=== PATIENT | male | born 1960 | race Caucasian/White ===

== ENCOUNTER → 2024-02-11 08:09 | Outpatient (CLI) | payer OTHER, SELFPAY ==
--- NOTE | 2024-02-11 08:36 | EKG_ITS ---
[address] [id number] [address] [place] [address] Test Date: 2024-02-11 Pat Name: Joshua Castillo Department: Room: Gender: Male Or[employer]al [employer] Sticker: : [id number] Requested By: Order Number: [id number] Reading MD: Agapito Felix MD Measurements Intervals [place] Rate: 64 P: 46 [place]: 164 QRS: 20 QRSD: 84 T: 25 QT: 402 QTc: 414 Interpretive Statements Normal sinus rhythm Electronically Signed On 02-11-2024 13:37:08 PDT by Agapito Felix MD
[2024-02-11 08:59] LABS: Add Manual Diff / Slide Review NO; Basophils Absolute Auto 0 /uL (0-100); Basophils Percent Auto 0.6 % (0-2); Eosinophils Absolute Auto 100 /uL (0-450); Eosinophils Percent Auto 3.4 % (2-4); Hemoglobin 13.6 g/dL (13.5-17.5); Lymphocytes Absolute Auto 1400 /uL (1100-4500); Lymphocytes Percent Auto 33.5 % (25-40); Mean Corpuscular Hemoglobin 31.5 PG (26-34); Mean Corpuscular Volume 92.4 fL (80-100); Monocytes Absolute Auto 500 /uL (0-900); Monocytes Percent Auto 11.6 % (3-14); Neutrophils Absolute Auto 2100 /uL (1500-7000); Neutrophils Percent Auto 50.9 % (50-75); Platelet Count 265 X10^3/uL (150-400); Red Blood Cell Count 4.32 X10^6/uL (4.5-5.9); White Blood Cell Count 4.2 X10^3/uL (4.5-11.0)
[2024-02-11 09:12] LABS: BUN Creatinine Ratio 29.8 (6-22); Blood Urea Nitrogen 25 mg/dL (9-20); Calcium 9.1 mg/dL (8.4-10.2); Carbon Dioxide 25 mmol/L (22-32); Chloride 107 mmol/L (98-107); Estimated Glomerular Filt Rate > 60 mL/min (>60); Glucose 130 mg/dL (80-110); HEMOLYSIS < 15 (0-50); Sodium 139 mmol/L (137-145)
== END ==
PROVIDERS: PCP Family Medicine; Referring Provider Orthopaedic Surgery; Visit Provider Orthopaedic Surgery
DX: Z01.818 Encounter for other preprocedural examination (principal); Z01.812 Encounter for preprocedural laboratory examination
CPT/HCPCS: 36415; 80048; 85025; 93005; 93010

== ENCOUNTER 2024-04-07 08:25 | Day surgery (SDC) | payer OTHER, SELFPAY ==
[2024-04-01 10:44] VITALS: BMI 34.5
[2024-04-07] VITALS (11 sets, daily range): BP systolic 105–156; BP diastolic 58–83; PULSE 59–83; RESP 12–21; TEMP 36.4–37.2; O2SAT 94–99; BMI 34.7
--- NOTE | 2024-04-07 | DI.RAD.S_ITS ---
PROCEDURE: [id number] W PEL IF PERFORMED INDICATIONS: LEFT ANTERIOR HIP TECHNIQUE: 7 fluoroscopic spot films COMPARISON: None. FINDINGS: Low resolution intraoperative fluoroscopic spot films show left total hip arthroplasty in progress. IMPRESSION: Fluoroscopic guidance Approved by: Josafat Gonzalez M.D. on 04/07/2024 at 14:15
--- NOTE | 2024-04-07 | DI.RAD.S_ITS ---
PROCEDURE: XR HIP W PEL IF DONE LT 2V INDICATIONS: LEFT ANTERIOR POST OP TECHNIQUE: AP pelvis and lateral view of the hip acquired. COMPARISON: [facility], CR, [id number] W PEL IF PERFORMED, 04/07/2024, 11:51. FINDINGS: Bones: Patient is status post left hip arthroplasty, with hardware components in expected positions. The hip joint appears congruent. The visualized bony structures appear intact. Soft tissues: Overlying postoperative changes are noted. No suspicious soft tissue densities. IMPRESSION: Expected post-operative appearance of a hip arthroplasty. Approved by: Josafat Gonzalez M.D. on 04/07/2024 at 14:18
[2024-04-07] MEDS: LACTATED RINGERS 1,000 ML 42 ML IV ×2 (09:14→11:57)
[2024-04-07] MEDS: ACETAMINOPHEN 325 MG TABLET 975 MG PO (09:14)
[2024-04-07] MEDS: VANCOMYCIN 1,000 MG/200 ML PIGGYBACK 200 MG IV (10:09)
[2024-04-07] MEDS: CEFAZOLIN VIAL 1 GM in SODIUM CHLORIDE 0.9% 100 ML IV (10:22)
[2024-04-07] MEDS: CEFAZOLIN 2 GM/100 ML PREMIX 100 ML IV (10:22)
--- NOTE | 2024-04-07 10:25 | PM.PREOP ---
Pre-operative Note Interval Note History & Physical reviewed/Exam performed by Physician: Yes Changes to H&P: No
[2024-04-07] MEDS: TRANEXAMIC ACID 1,000 MG in SODIUM CHLORIDE 0.9% 100 ML 200 MG IV ×2 (10:30→13:01)
--- NOTE | 2024-04-07 11:28 | SUR.OPER ---
Patient supine on padded [place] table, one arm on padded arm board at <90, other arm padded and secured with tape across patient's chest, both legs secured in padded traction boots and positioned per surgeon, padded post at patient's groin, pressure points checked and padded.
[2024-04-07] MEDS: BUPIVACAINE LIPOSOME 266 MG/20 ML VIAL INJ (11:35)
[2024-04-07] MEDS: BUPIVACAINE 0.25% (PF) 60 ML, EPINEPHrine 0.3 MG INJ (11:35)
--- NOTE | 2024-04-07 13:53 | P.OP_ITS ---
Operative Date/Time/Diagnoses Date of procedure: 04/07/24 Time of procedure: 11:20 Pre-op diagnosis: left hip OA Post-op diagnosis: same Procedure & Clinicians Procedure: Left total hip arthroplasty anterior approach Same procedure as scheduled: Yes Indications: The patient has had progressively worsening left hip pain with radiographic culp ges consistent with arthritis. Non-operative management has failed and the patient has requested total hip replacement. The risks, benefits and alternatives to surgery were discussed with the patient prior to proceeding. Risks discussed included, but were not limited to, failure to relieve pain, leg length discrepancy, dislocation, stiffness, infection, nerve damage, deep venous thrombosis, pulmonary embolism, stroke, coma, heart attack, permanent paralysis and , as well as the potential need for eventual revision of the prosthetic. Surgeon: Shahida Bhat Revolving Field Assembler: Jase Rasmussen Anesthesia Type: General and Spinal Operative Notes Findings: Severe left hip OA, adequate stability, adequate bone Closure Type: primary Specimen(s): none sent Prosthetic devices, grafts, tissues, transplants, or devices: Bhat and Nephew 60 mm R3 cup, neutral poly liner, one 6.5 mm screw, polar stem lateralized size 4, 40 mm Oxinium head, +4 Estimated Blood Loss (mL): 250 Blood products transfused: none Procedure in detail: The patient was brought to the operating room. Patient was carefully positioned in the supine position. Time-out was performed and antibiotics were given. Anesthesia was induced. He was positioned in the on the table in order to allow hyperextension of the hip. The left lower extremity was prepped and draped in a standard sterile fashion. An anterior left hip incision was made 1 fingerbreadth lateral to the anterior superior iliac spine and extended distally towards the greater trochanter. Dissection was carried out through skin and subcutaneous tissues. Superficial hemostasis was achieved. The fascia over the tensor fascia sukhwinder was defined and incised with a knife. Two Allis clamps were used to grasp the fascia. Tensor fascia sukhwinder was retracted laterally. A gelpi retractor was placed. Dissection was carried out down along the neck. The circumflex vessels were carefully identified and cauterized with the Aqua Mantis. A PA was used during the procedure and was essential for intraoperative retraction and safe implantation of the components. There was good visualization of the femoral neck. A Cobra was placed superior to the neck and the gluteus fibers were carefully stripped from that superior aspect of the capsule. A 2nd retractor was placed along the inferior aspect of the neck. The rectus insertion along the capsule was partially released. A 3rd retractor that was then gently placed over the rim of the acetabulum under the rectus. Capsule was carefully incised and released from the intertrochanteric line circumferentially superior to the mid sagittal line and inferiorly to the mid sagittal line until the lesser trochanter was palpable. A tag stitch was placed both in the superior and inferior limb of the capsular insertion. Along the acetabulum capsule was also released up to the mid sagittal 12:00 position. A portion of the labrum was resected. A saw was used to perform an osteotomy at the level of the intertrochanteric line and the junction of the superior femoral neck leaving approximately 1 finger breath of residual inferior neck above the lesser trochanter. A 2nd cut was made along the femoral neck at the base of the head and a napkin ring of neck was removed. Corkscrew was placed in the femoral head and the head was removed without difficulty. Retractors were then repositioned around the acetabulum. Residual labrum was resected and additional osteophytes were removed. A reamer that was 4 mm below the templated size was placed by hand in the acetabulum and it was reamed to centralize the acetabulum. It was then reamed up to 2 under the templated size and fluoroscopy was brought in to confirm the position of the reaming and depth of reaming. I reamed 1 under the anticipated size. A trial cup was placed and noted that it was appropriately sized and fluoroscopy confirmed position and depth. The component was open and inserted without difficulty fluoroscopic imaging was used to confirm that the cup had been adequately seated and was well positioned. It was further stabilized with a single screw. Neutral poly liner was placed. The cup was tested and noted to be stable. Attention was then directed to the femur. The femur was gently hyperextended additional capsular release was performed as needed in order to allow adequate visualization of the proximal femur with elevation of the femur. Patient was placed in a hyperextended slightly adducted position with maximum external rotation. Box osteotome was used to check for any residual neck as well as sclerotic bone along the trochanter. [place] pepper was placed in the femur. Additional broaching was performed. Canal finder was used to determine the alignment of the canal and position. Size 1 broach was placed. The canal was then appropriately broached up to the templated size as long as there was adeq uate stability of the broach and serial advancement of the broach without excessive impingement. Specific attention was directed at avoiding varus attempting to direct the distal aspect of the broach more anteriorly and avoiding excessive anteversion. Trial reduction showed acceptable range of motion, good stability, no posterior impingement, yazidism of leg length and appropriate lateral shuck. I also hyperflexed the hip and checked that there was no impingement anteriorly and there was good stability with flexion, adduction and internal rotation. Marcaine and Exparel were injected. The stem was placed without difficulty. Repeat trial reduction and x-ray showed acceptable overall position, length, and no evidence of the femoral fracture. I did a trial both with a +0 and a +4. X- rays suggested better leg length with a +4. Final head was placed. Wound was meticulously irrigated with normal saline. The hip was reduced and additional Exparel and Marcaine were injected. The capsule was closed with interrupted nonabsorbable sutures. The fascia of the tensor was closed with interrupted and running Vicryl. No drain was placed. Any tensor fascia sukhwinder muscle that appeared to be contused or injured which was a minimal amount was carefully resected. Capsule around the tensor was injected with Exparel and Marcaine. The skin was closed with barbed stitches for the subcutaneous tissue and skin. We also used surgical glue. The wound was dressed sterilely. Brief Betadine soak was also used and was meticulously irrigated with normal saline. Patient was transferred to recovery room in satisfactory condition. Complications: none Post-operative Condition: stable Disposition: Acute Care Plan for aftercare: The patient will be maintained on a standard total hip replacement protocol with weight bearing as tolerated and anterior hip precautions. The patient will receive Aspirin and sequential compression devices for DVT prophylaxis. The patient will be discharged home when safe for the home environment.
[2024-04-07] MEDS: OXYCODONE IR 5 MG TABLET PO (15:36)
[2024-04-07] MEDS: ACETAMINOPHEN 325 MG TABLET 650 MG PO ×2 (15:37→20:07)
--- NOTE | 2024-04-07 17:36 | PC.NURSE ---
Dressing to l.hip with ramon ames. Patient given oxycodone and tylenol. He is resting comfortably.
[2024-04-07] MEDS: CEFAZOLIN VIAL 3 GM in SODIUM CHLORIDE 0.9% 100 ML IV (18:30)
[2024-04-07] MEDS: LACTATED RINGERS 1,000 ML 100 ML IV (18:32)
[2024-04-07] MEDS: DOCUSATE 100 MG CAPSULE PO (20:07)
[2024-04-07] MEDS: ASPIRIN EC 81 MG TABLET PO (20:07)
--- NOTE | 2024-04-07 22:00 | PC.NURSE ---
Addendum entered by Skyla Galindo R.N. 04/08/24 06:39: Pt OOB and ambulated to bathroom x3 during shift. Original Note: NOC: Pt OOB and ambulated 1PA/FWW/GB to bathroom, voided 600mL clear yellow urine, ambulated back to bed. Pt tolerated well, steady gait. Bed low and locked, call light within reach, care continues.
[2024-04-08] MEDS: IBUPROFEN 400 MG TABLET PO ×2 (00:07→09:22)
[2024-04-08] MEDS: OXYCODONE IR 5 MG TABLET PO (01:05)
[2024-04-08 02:00] VITALS: BP 90/34; PULSE 79; RESP 16; TEMP 36.6; O2SAT 99
[2024-04-08] MEDS: CEFAZOLIN VIAL 3 GM in SODIUM CHLORIDE 0.9% 100 ML IV (02:35)
[2024-04-08 07:14] LABS: Hematocrit 32.9 % (41-53); Hemoglobin 11.4 g/dL (13.5-17.5)
[2024-04-08 08:00] VITALS: BP 104/68; PULSE 62; RESP 15; TEMP 36.6; O2SAT 96
--- NOTE | 2024-04-08 08:45 | PM.DS.1 ---
History of Present Illness History of Present Illness Date Patient Seen: 04/08/24 Time Patient Seen: 07:45 Chief complaint: Left Total Hip Arthroplasty/Anterior Approach 04/07 Narrative: The patient has had progressively worsening left hip pain with radiographic changes consistent with arthritis. Non-operative management has failed and the patient has requested total hip replacement. The risks, benefits and alternatives to surgery were discussed with the patient prior to proceeding. Risks discussed included, but were not limited to, failure to relieve pain, leg length discrepancy, dislocation, stiffness, infection, nerve damage, deep venous thrombosis, pulmonary embolism, stroke, coma, heart attack, permanent paralysis and , as well as the potential need for eventual revision of the prosthetic. Discharge Providers Provider Discharge Date: 04/08/24 Primary care physician: Osmani Ramos MD Consults: 04/07/24 10:20 Consult to Anesthesiology Routine Comment: Consulting Provider: Anesthesiologist Reason for consultation: Regional block for post operative pain control 04/07/24 15:13 Consult to Discharge Planning Routine Comment: Consult to Occupational Therapy Evaluate & Treat Comment: Physician Instructions: Evaluate and treat Consult to Physical Therapy Evaluate & Treat Comment: Physician Instructions: post op RYAN protocol Discharge provider: Mert Matos PA-C Summary Hospital Course Discharge Diagnosis: left hip OA Hospital Course: Left total hip arthroplasty anterior approach Same procedure as scheduled: Yes Surgeon: Shahida Bhat Epic Cadence Analyst: Jase Rasmussen Anesthesia Type: General and Spinal Operative Notes Findings: Severe left hip OA, adequate stability, adequate bone Closure Type: primary Specimen(s): none sent Prosthetic devices, grafts, tissues, transplants, or devices: Bhat and Nephew 60 mm R3 cup, neutral poly liner, one 6.5 mm screw, polar stem lateralized size 4, 40 mm Oxinium head, +4 Estimated Blood Loss (mL): 250 Blood products transfused: none Status at Discharge Cognitive/behavioral status at discharge: oriented Functional status at discharge: uses cane/walker Overall status at discharge: patient is back to baseline Time Spent with Patient Time spent: Less than 30 minutes Exam Vital Signs (past 8 hours): - 04/08/24 02:00 Temperature 97.8 F Pulse Rate 79 Respiratory Rate 16 Blood Pressure 90/34 L Pulse Oximetry 99 Oxygen Flow Rate 0 Oxygen Delivery Method Room Air Oxygen Flow Rate 0 Narrative Exam Narrative: Sitting comfortably in his chair. Pain is controlled with oral medications. He has been able to get up and ambulate with assistance. Denies any nausea vomiting chills. 5/5 strength in hip flexors, quadriceps, hamstrings, DF, PF, EHL bilaterally. Sensation to light touch intact throughout BLE. Calves soft, compressible, nontender. ?Dressing placed intraoperatively CDI. Resp Effort & Inspection: normal respiratory effort and able to speak in complete sentences Objective Labs 04/08/24 06:10 Labs: Laboratory Results - last 24 hr 04/08/24 06:10 Hgb 11.4 L Hct 32.9 L PFSH Medical History Osteoarthritis Prediabetes Obesity HTN (hypertension) Surgical History Hx of tonsillectomy Social History household members: spouse Smoking Status: Never smoker alcohol intake: current Discharge Assessment & Plan Assessment and Plan Assessment: Status post left RYAN Plan of Treatment: Plan discharge home pending PT approved. Hypotensive this morning. Providing 1000 cc to restore volume. Holding lisinopril this morning. Ambulate as tolerated with assistive devices. Patient has postoperative medications and has been instructed on use. Initiate outpatient physical therapy in 5-10 days. Aspirin 81 mg twice a day for 6 weeks for DVT prophylaxis. Follow up in clinic in 2 weeks for wound check. Discharge Plan Discharge Plan Patient Disposition: Home Provider Discharge Comment: DC pending PT approval Discharge orders & Medications Discharge Orders: Discharge (Order); Ordered 04/08/24 Ordered By: Mert Matos Prescriptions: Continued lisinopril-hydrochlorothiazide 20-12.5 mg tablet 0.5 tab PO DAILY ibuprofen 200 mg Capsule 200 - 400 mg PO BID PRN (Reason: Pain (Scale Score 4-6)) Changed aspirin 81 mg Capsule 81 mg PO BID Qty: 90 0RF Follow up/Referrals: Osmani Ramos MD [Primary Care Provider] - Diet/Activity/Treatments Diet: Diet as Tolerated Activity: Ambulate multiple times a day. Use a cane or walker as needed. Full weight on leg. Cold/Heat Therapy: Use ice multiple times a day. Skin/Wound/Dressing Care Skin care: Leave dressing on. Okay to shower Report to your healthcare provider any signs of infection, such as:: chills, fever, night sweats, unusual drainage and unusual redness Dressing: May shower. Leave dressing in place until follow up in office. No bathing or otherwise soaking incision. Call the office if the dressing becomes saturated inside. Visit Report/Discharge Packet Instructions: DI for Hip Replacement, DI for Prescription Opioid Use Stand Alone Forms: Surgery Discharge Discharge Data Primary Care Provider: Osmani aRmos Attending Provider: Shahida Bhat
[2024-04-08] MEDS: polyethylene glycoL 3350 17 GM POWD.PACK PO (09:21)
[2024-04-08] MEDS: ACETAMINOPHEN 325 MG TABLET 650 MG PO (09:22)
[2024-04-08] MEDS: DOCUSATE 100 MG CAPSULE PO (09:23)
[2024-04-08] MEDS: ASPIRIN EC 81 MG TABLET PO (09:23)
--- NOTE | 2024-04-08 09:45 | OT.IP.EVAL ---
Current Diagnoses Unilateral primary osteoarthritis, left hip (04/07/24) Surgery Performed Operation Date: 04/07/24 10:45 Actual Procedures p Total Hip Arthroplasty/Anterior Approach(Left) - Shahida Bhat MD Past Medical History (Last Reviewed 04/07/24 @ 09:32 by Camille Bauer, SHELLY) HTN (hypertension) Obesity Osteoarthritis Prediabetes Surgical History (Last Reviewed 04/07/24 @ 09:32 by Camille Bauer, SHELLY) Hx of tonsillectomy Occupational Therapy Inpatient Evaluation/Re-Eval M1 PT/OT-IP Prior Functional Status Start: 04/08/24 09:48 Freq: NEEDED Status: Active Protocol: Document 04/08/24 09:48 [facility] (Rec: 04/08/24 10:00 [facility] [id number]) Medical Review Prior Functional Status Communication Independent Mobility and Gait Limited with walking distance without a device and use of trekking poles to hike. Activities of Daily Living and IADL's Increased time and had pain. Social History Household Members spouse Living Arrangements House Number of Floors (Floors) Two Floors Number of Stairs To Enter/Railing? 2 steps to enter with post and to stay on the main level and sleep in the recliner initially. Home Environment Standard Height Toilet,Tub/ Shower Home Equipment Front Wheel Walker,Shower Seat without Backrest,Filtrose Crusher,Grab Bars In Shower Additional Social History Comment Pt's to be home to assist pt. M2 OT-IP Current Condition Start: 04/08/24 09:48 Freq: Status: Active Protocol: Document 04/08/24 09:48 [facility] (Rec: 04/08/24 10:00 [facility] [id number]) Occupational Therapy Current Condition Current Condition Evaluation Date 04/08/24 Treatment Diagnosis S/P L RYAN anterior Diagnosis Onset Date 04/07/24 Post Operative Precautions Anterior Hip Precautions No Hip Extension,No Hip External Rotation M3 OT- IP Subjective and Pain Start: 04/08/24 09:48 Freq: Status: Active Protocol: Document 04/08/24 09:48 [facility] (Rec: 04/08/24 10:00 [facility] [id number]) OT- Subjective Occupational Therapy Visit Type Type Initial Evaluation Visit Start Time 09:10 Visit Stop Time 09:45 Occupational Therapy Visit Comments Patient Comments Pt agreed to get up and get dressed, pt's present at the end of OT eval. Patient/Caregiver Goals TO go home. OT Pain Assessment Pain When Pain Assessed During Mobility Pain Present Pain Present Pain Reported Location Left Hip Intensity 4 Scale Used Numeric (0 - 10) M4 OT- IP ADL's Start: 04/08/24 09:48 Freq: Status: Active Protocol: Document 04/08/24 09:48 [facility] (Rec: 04/08/24 10:00 [facility] [id number]) OT [id number] General Evaluation Self-Feeding Ability Independent OT ADL-Grooming General Evaluation Grooming Ability Independent OT ADL-Oral Care General Eval Oral Care Ability Independent OT ADL-Dressing General Eval Upper Body Dressing Ability Independent Lower Body Dressing Ability Moderate Assistance Areas Needing Assistance Socks,Shoes Comments OT Dressing Comments Able to show pt use of LB dressing equipment. To dress the LLE first and take out last and to be mindful on the LLE positioning during needs. OT ADL-Toileting General Evaluation Toileting Ability Standby Assistance Comments OT Toileting Comments Showed pt toilet aid as pt has difficulty to reach behind him and suggested use of urinal at night. OT ADL-Bathing General Evaluation Bathing Ability Minimal Assistance Areas Needing Assistance Wash/Dry Back Comments OT Bathing Comments Pt able to sponge off while seated. Pt states will just sponge off until feeling stronger to get upstairs to the shower. M5 OT- IP IADL's Start: 04/08/24 09:48 Freq: Status: Active Protocol: Document 04/08/24 09:48 [facility] (Rec: 04/08/24 10:00 [facility] [id number]) OT-Instrumental Activities of Daily Living Home Safety Awareness Awareness of Need for Assistance at Home Good Awareness Ability to Problem Solve Emergency Able to Problem Solve Situations Medication Management Medication Management No Deficits Identified Money Management Money Management No Deficits Identified Meal Preparation Meal Preparation Caregiver Provides Assist Reclamation Engineer Reclamation Engineer Caregiver Provides Assist M6 OT- IP Functional Cognition Start: 04/08/24:48 Freq: Status: Active Protocol: Document 04/08/24 09:48 [facility] (Rec: 04/08/24 10:00 [facility] [id number]) Cognitive Factors Limiting Selfcare Function Cognitive Ability Level of Alertness Alert Patient Orientation Name,Age,Birthday,Month,Date, Year,Day of Week,Place, Situation Attention Span Ability Capable of Focused Attention, Capable of Sustained Attention Ability to Follow Commands Able to Follow Multi-Step Commands Cognitive Comments Cognitive Assessment Comments Intact OT- Vision and Hearing OT- Hearing Assessment OT- Hearing Assessment WFL OT- Vision Assessment Visual Acuity WFL Visual Attentiveness WFL Occular Pursuits WFL Vision Assessment Comments Glasses for driving M7 OT- IP Mobility and Balance Start: 04/08/24 09:48 Freq: Status: Active Protocol: Document 04/08/24 09:48 [facility] (Rec: 04/08/24 10:00 [facility] [id number]) OT- Bed Mobility Assessment Supine to Sit Supine to Sit Assist Minimal Assistance Sit to Supine Sit to Supine Assist Minimal Assistance OT-Transfer Assessment Sit to and From Stand Sit to and from Stand Minimal Assistance Transfers Transfer Ability Standby Assistance,Contact Guard Assistance Technique Transfer Destination Bed,Chair,Toilet Transfer Technique Stand Step Pivot Devices Transfer Assistive Devices Gait Belt,Front Wheeled Walker Comments Mobility Comments Assist to get his LLE into and out of the bed and educated to be sure his toes are pointing up to prevent from external rotation. Educated for car transfers and how to lyn/doff the gait belt. OT- Balance Assessment Sitting Balance and Reactions Static Sitting Balance Ability Normal Dynamic Sitting Balance Ability Good Standing Balance and Reactions Static Standing Balance Ability Good Dynamic Standing Balance Ability Fair M8 OT- IP Objective Assessments Start: 04/08/24 09:48 Freq: Status: Active Protocol: Document 04/08/24 09:48 [facility] (Rec: 04/08/24 10:00 [facility] [id number]) OT Gross Range of Motion Upper Extremity Range of Motion Assessment Within Functional Limits OT Strength Upper Extremity Strength Assessment Within Functional Limits M9 OT- IP Assessment and Plan Start: 04/08/24 09:48 Freq: Status: Active Protocol: Document 04/08/24 09:48 [facility] (Rec: 04/08/24 10:00 [facility] [id number]) OT Summary Assessment and Plan Potential Rehabilitation Potential Excellent Analytic Complexity at Evaluation Low Summary OT Impairments Pain,Strength,Balance, Functional Mobility,Dressing, Toileting,Bathing,Toilet Transfers,Shower Transfers Progress Towards Goals Progressing Toward Goals Goals Dressing Goal Independent,Filtrose Crusher Toileting Goal Independent Bathing Goal Standby Assistance Toilet Transfer Goal Independent Shower Transfer Goal Standby Assistance Days to Meet Goals 7 Frequency of Treatment Other frequency 5x/week Treatment Plan OT Treatment Plan ADL Training,Functional Mobility,Patient/Family Education,Discharge Planning Discharge Recommendations OT Discharge Recommendations Home with Assistance, Outpatient PT Home Equipment Needs toilet paper aid, can benefit from a sock aid Transportation Needs at Discharge Private Vehicle
--- NOTE | 2024-04-08 10:10 | PT.IIE ---
Current Diagnoses Unilateral primary osteoarthritis, left hip (04/07/24) Surgery Performed Operation Date: 04/07/24 10:45 Actual Procedures p Total Hip Arthroplasty/Anterior Approach(Left) - Shahida Bhat MD Surgical History (Last Reviewed 04/07/24 @ 09:32 by Camille Bauer, RN) Hx of tonsillectomy Medical History (Last Reviewed 04/07/24 @ 09:32 by Camille Bauer, SHELLY) HTN (hypertension) Obesity Osteoarthritis Prediabetes Physical Therapy Inpatient Evaluation/Re-Eval M1 PT/OT-IP Prior Functional Status Start: 04/08/24 09:48 Freq: NEEDED Status: Discharge Protocol: Document 04/08/24 09:48 [facility] (Rec: 04/08/24 10:00 [facility] [id number]) Medical Review Prior Functional Status Communication Independent Mobility and Gait Limited with walking distance without a device and use of trekking poles to hike. Activities of Daily Living and IADL's Increased time and had pain. Social History Household Members spouse Living Arrangements House Number of Floors (Floors) Two Floors Number of Stairs To Enter/Railing? 2 steps to enter with post and to stay on the main level and sleep in the recliner initially. Home Environment Standard Height Toilet,Tub/ Shower Home Equipment Front Wheel Walker,Shower Seat without Backrest,Control Room Technician,Grab Bars In Shower Additional Social History Comment Pt's to be home to assist pt. M1 PT/OT-IP Prior Functional Status Start: 04/08/24 13:12 Freq: NEEDED Status: Active Protocol: Document 04/08/24 10:10 AB (Rec: 04/08/24 13:28 AB [id number]) Medical Review Prior Functional Status Medical History Reviewed Yes Communication able to make needs known Mobility and Gait pt stated that he was independent with all mobilities and ambulation without AD Social History Household Members spouse Living Arrangements House Number of Floors (Floors) Two Floors Number of Stairs To Enter/Railing? pt will stay on main level of the house has 2 steps withotu rails to enter the house Home Environment Standard Height Toilet,Tub/ Shower Home Equipment Front Wheel Walker,Shower Seat without Backrest,Hand Held Shower,Control Room Technician,Grab Bars Near Toilet,Grab Bars In Shower Additional Social History Comment pt has hiking poles M2 PT-IP Current Condition Start: 04/08/24 13:12 Freq: NEEDED Status: Active Protocol: Document 04/08/24 10:10 AB (Rec: 04/08/24 13:28 AB [id number]) Physical Therapy Current Condition Current Condition Evaluation Date 04/08/24 Treatment Diagnosis s/p L RYAN anterior; difficulty in walking Onset Date 04/07/24 M3 PT-IP Subjective Start: 04/08/24 13:12 Freq: NEEDED Status: Active Protocol: Document 04/08/24 10:10 AB (Rec: 04/08/24 13:28 AB [id number]) Subjective Physical Therapy Visit Type Type Initial Evaluation Visit Start Time 10:10 Visit Stop Time 10:45 Number of COOK RAILROAD Visits 0 Physical Therapy Visit Comments Patient Comments agreeable to do PT Therapy Pain Assessment Pain When Pain Assessed At Rest Pain Present Pain Present Pain Reported Location Left Hip Intensity 1 Scale Used Numeric (0 - 10) Pain Management Techniques Apply Cold,Distraction, Modification of Treatment,Re- positioning,Timing of Activity with Medications M4 PT-IP Mobility and Gait Start: 04/08/24 13:12 Freq: NEEDED Status: Active Protocol: Document 04/08/24 10:10 AB (Rec: 04/08/24 13:28 AB [id number]) PT-Bed Mobility Assessment Supine to Sit Supine to Sit Minimal Assistance,1 Person Assistance Sit to Supine Sit to Supine Minimal Assistance,1 Person Assistance PT-Transfer Assessment Sit to and From Stand Sit to and from Stand Standby Assistance,Contact Guard Assistance,1 Person Assistance,Use of Upper Extremities Equipment Transfer Assistive Device Gait Belt,Front Wheeled Walker Orthotic/Prosthetic Devices or Brace: No Transfers Transfer Destination Bed,Chair Transfer Technique ambulated Transfer Ability Level of Assist Standby Assistance,Contact Guard Assistance,1 Person Assistance,Use of Upper Extremities Comments Mobility Comments pt sitting on the chair and spouse in room. agreed to do PT. obtained PLOF and home set up. reviewed precautions and pt able to recall. pt completed sit to stand from chair CGA and ambulated in room ~ 40 ft using FWW CGA. pt sat on EOB. completed sit to supine min A for elevating LLE up. cued pt for techniques and educated spouse on how to assist pt. pt completed supine to sit min A and cues for techniques. educated pt and spouse on how to do stair climbing using SPC + WINDOW UNIT AIR CONDITIONING MECHANIC. PT demonstrated. spouse was able to put safety belt on pt. assisted pt with sit to stand from chair CGA and pt ambulated towards platform step using FWW with spouse assisting SBA to CGA. pt completed up/down platform step using SPC + WINDOW UNIT AIR CONDITIONING MECHANIC mod A and cues. initial cues from PT but pt repeated again and spouse was able to cue pt. pt ambulated back to his room using FWW SBA and sat on chair . positioned pt on the chair. call light and table placed within reach. pt and spouse without further concerns. Gait Assessment Gait Gait Assistance Required: Standby Assistance,Contact Guard Assist Distance (Feet) 40 Able to Maintain Weight Bearing Status Yes During Gait Assistive Devices Assistive Device Gait Belt,Front Wheeled Walker Orthotic/Prosthetic Devices or Brace: No Gait Deviations General Gait Pattern Decreased Feet Clearance Factors Limiting Gait Function Factors Limiting Gait Function Decreased Activity Tolerance, Decreased Strength,Limited Range of Motion,Pain,Poor Balance Stair Climbing Assessment Evaluation Level of Assist On Stairs Moderate Assistance,1 Person Assistance Devices Stair Climbing Assistive Devices Straight Cane Technique/Endurance Stair Climbing Direction Ascend and Descend Stair Climbing Technique Step to Step Number of Steps Climbed 1 Query Text: Stair Climbing Set # Repetitions (reps) 2 PT-Balance Assessment Sitting Balance and Reactions Static Sitting Balance Ability Normal Dynamic Sitting Balance Ability Normal Standing Balance and Reactions Static Standing Balance Ability Good Dynamic Standing Balance Ability Fair Device Used FWW M5 PT-IP Objective Assessments Start: 04/08/24 13:12 Freq: NEEDED Status: Active Protocol: Document 04/08/24 10:10 AB (Rec: 04/08/24 13:28 AB [id number]) Orientation Orientation/Cognition Level of Alertness Alert Orientation Name,Place,Situation Language Function Ability No Deficits Noted Safety Awareness Understands Safety Issues Memory Description No Deficits Noted Gross Range of Motion Lower Extremity ROM Assessment Within Functional Limits Strength Lower Extremity Strength Assessment Left Impaired Hip 3-/5 Knee 4-/5 Coordination Assessment Gross Coordination Gross Coordination WNL Sensation Assessment Sensation Gross Sensation WNL Muscle Tone Muscle Tone WNL Yes M6 PT-IP Treatment Start: 04/08/24 13:12 Freq: NEEDED Status: Active Protocol: Document 04/08/24 10:10 AB (Rec: 04/08/24 13:28 AB [id number]) Physical Therapy Treatment Education Education Provided Precautions,Weight Bearing Status,Safety M7 PT-IP Assessment and Plan Start: 04/08/24 13:12 Freq: NEEDED Status: Active Protocol: Document 04/08/24 10:10 AB (Rec: 04/08/24 13:28 AB [id number]) PT Summary Assessment and Plan Potential Rehabilitation Potential Good Status of Condition at Evaluation Stable Summary Impairments Pain,ROM,Strength,Balance, Coordination,Sensation,Tone, Cognition,Bed Mobility, Transfers,Gait,Activity Tolerance Assessment Summary pt is a 63 y/o M s/p L RYAN anterior approach POD 1. pt with L hip anterior precautions and is WBAT. pt requiring SBA to CGA with transfers and ambulation using FWW and needing mod A for stair climbing. caregiver training conducted and spouse was able to assist pt with mobility. pt has outpt PT set up. pt may go home when medically stable. Goals Bed Mobility Goal Independent Transfer Goal Independent,Front Wheeled Walker Gait Goal Independent,Front Wheel Walker Gait Distance 300 Other Goals up/down 2 steps using SPC + WINDOW UNIT AIR CONDITIONING MECHANIC CGA Days to Meet Goals 5 Frequency of Treatment Frequency Of Treatment Twice a Day Treatment Plan Physical Therapy Treatment Plan Bed Mobility Training,Transfer Training,Gait Training, Therapeutic Exercise,Balance Retraining,Post Op Education, Discharge Planning,Hot or Cold Pack,Neuromuscular Re-ed, Coordination Retraining,Manual Therapy Precautions Anterior Hip Precautions No Hip Extension,No Hip External Rotation Weight Bearing Status Weight Bearing Status Weight Bear as Tolerated Allowed Weight Bearing Amount (enter % LLE WBAT or #) (%) Recommendations To Nursing Amount of Assist Needed 1 Person Assist Discharge Recommendations PT Discharge Recommendations Home with Assistance, Outpatient PT Transportation Needs at Discharge Private Vehicle
--- NOTE | 2024-04-08 14:05 | CM.DPNOTE ---
Patient new admit, post op day, with d/c orders. Patient states he is going home with family and has Out Patient PT arranged, no needs identified. MARISOL Melendez
== END 2024-04-08 11:50 | disposition home or self-care (01) ==
LOC: OR 08:25 → AC 08:26
PROVIDERS: PCP Family Medicine; Referring Provider Orthopaedic Surgery; Visit Provider Orthopaedic Surgery
PROC: (CPT 27130; principal; 2024-04-07 10:45)
DX: M16.12 Unilateral primary osteoarthritis, left hip (principal); M25.752 Osteophyte, left hip
CPT/HCPCS: 27130; 36415; 73502; 73503; 76000; 82962; 85014; 85018; 97161; 97165; 97530; 97535; C1776; C9290; J0171; J0690; J1100; J1170; J2405; J2704